=== PATIENT | female | born 1990 | race Caucasian/White ===

== ENCOUNTER 2016-10-27 08:03 | Emergency (ER) | payer SELFPAY ==
[2016-10-27 08:22] VITALS: BP 118/76
--- NOTE | 2016-10-27 08:43 | ER Document Report ---
HPI - HPI Patient complains to provider of: Pruritic rash Onset: Other - Several days Onset/Duration: Gradual Pain Level: 2 Context: 26-year-old female complaining of rash medial aspect of bilateral upper thighs, anterior left thigh and now left chest. No fever. No exposure to poison dahiana or change in detergents anything that she can think of that would cause a rash. Associated Symptoms: None Exacerbated by: Denies Relieved by: Denies Similar symptoms previously: No Recently seen / treated by doctor: No - ROS ROS below otherwise negative: Yes Systems Reviewed and Negative: Yes All other systems reviewed and negative - REPRODUCTIVE LMP: 10/26/16 Reproductive: DENIES: : - DERM Skin Color: Erythema Past Medical History - General Information source: Patient - Social History Smoking Status: Never Smoker Frequency of alcohol use: None Drug Abuse: None Lives with: Family Family History: Reviewed & Not Pertinent Patient has suicidal ideation: No Patient has homicidal ideation: No Pulmonary Medical History: Reports: Hx Asthma Renal/ Medical History: Denies: Hx Peritoneal Dialysis Surgical Hx: Negative - Immunizations Hx Diphtheria, Pertussis, Tetanus Vaccination: Yes Vertical Provider Document - CONSTITUTIONAL Agree With Documented VS: Yes Exam Limitations: No Limitations General Appearance: No Apparent Distress - INFECTION CONTROL TRAVEL OUTSIDE OF THE [place] IN LAST 30 DAYS: No - HEENT HEENT: Normal ENT Exam - NECK Neck: Supple - RESPIRATORY Respiratory: Breath Sounds Normal, No Respiratory Distress O2 Sat by Pulse Oximetry: 98 - CARDIOVASCULAR Cardiovascular: Regular Rate, Regular Rhythm - MUSCULOSKELETAL/EXTREMETIES Musculoskeletal/Extremeties: MAEW, FROM, Non-Tender - NEURO Level of Consciousness: Awake, Alert - DERM Integumentary: Rash - Mild folliculitis in kissing areas of the medial inner obese thighs without infection, 3 areas left anterior thigh that have linear excoriations from scratching possible inflammation or impetigo at the sites similar appearing crusted area right upper chest that she scratched. Course - Vital Signs Vital signs: Temp Pulse Resp BP Pulse Ox 97.9 F 74 18 118/76 98 10/27/16 08:19 10/27/16 08:19 10/27/16 08:19 10/27/16 08:19 10/27/16 08:19 Discharge - Discharge Clinical Impression: possible scabies, Impetigo Condition: Good Disposition: HOME, SELF-CARE Instructions: Anti-Mite Skin Creams, Bactroban Ointment (OM), Car Worker, Use of Diphenhydramine, Impetigo (OM) Additional Instructions: use the elimite cream from toes to neck, wash off in 12 hours bactroban ointment as antibiotic, small amount three times per day to the inflamed areas on left thigh, and right chest to er if worse see ecological economist if persists Prescriptions: Mupirocin [Bactroban 2% Ointment 22 gm] 1 applic TP TID #1 tube Permethrin [Elimite] 60 gm TP ONCE PRN #1 cream.gm. PRN Reason: Forms: Return to Work
[2016-10-27] MEDS ORDERED: PERMETHRIN 5% CREAM 60 GM TP PRN (08:52)
== END 2016-10-27 09:02 | disposition home or self-care (01) ==
LOC: ER 08:03
DX: L01.00 Impetigo, unspecified (principal); L73.9 Follicular disorder, unspecified; J45.909 Unspecified asthma, uncomplicated
CPT/HCPCS: 99282; J3490

== ENCOUNTER 2017-08-14 21:26 | Emergency (ER) | payer SELFPAY ==
[2017-08-14 22:49] LABS: ABSOLUTE BASOPHILS # (AUTO) 0.1 10^3/uL (0.0-0.2); ABSOLUTE EOSINOPHILS # (AUTO) 0.6 10^3/uL (0.0-0.6); ABSOLUTE LYMPHOCYTES (AUTO) 3.4 10^3/uL (0.5-4.7); ABSOLUTE MONOCYTES (AUTO) 0.9 10^3/uL (0.1-1.4); ABSOLUTE NEUT (AUTO) 6.8 10^3/uL (1.7-8.2); BASOPHILS % (AUTO) 0.8 % (0-2); EOSINOPHILS % (AUTO) 5.4 % (0-6); HEMATOCRIT 45.6 % (36.0-47.0); HEMOGLOBIN 15.6 g/dL (12.0-15.5); LYMPHOCYTES % (AUTO) 28.8 % (13-45); MEAN CORPUSCULAR HEMOGLOBIN 30.5 pg (27.0-33.4); MEAN CORPUSCULAR HGB CONC 34.2 g/dL (32.0-36.0); MEAN CORPUSCULAR VOLUME 89 fl (80-97); MONOCYTES % (AUTO) 7.9 % (3-13); PLATELET COUNT 341 10^3/uL (150-450); RED BLOOD COUNT 5.11 10^6/uL (3.72-5.28); RED CELL DISTRIBUTION WIDTH 13.2 % (11.5-14.0); SEGMENTED NEUTROPHILS % (AUTO) 57.1 % (42-78); TOTAL CELLS COUNTED % (AUTO) 100 %; WHITE BLOOD COUNT 11.9 10^3/uL (4.0-10.5)
[2017-08-14 22:54] LABS: APPEARANCE,URINE SLIGHTLY-CLOUDY; BILIRUBIN,URINE NEGATIVE (NEGATIVE); COLOR,URINE YELLOW; GLUCOSE, URINE NEGATIVE (NEGATIVE); KETONES,URINE NEGATIVE (NEGATIVE); LEUKOCYTE ESTERASE,URINE SMALL (NEGATIVE); NITRITE,URINE NEGATIVE (NEGATIVE); PROTEIN,URINE NEGATIVE (NEGATIVE); URINE SPECIFIC GRAVITY 1.025; UROBILINOGEN,URINE NEGATIVE mg/dL (<2.0)
[2017-08-14 23:10] LABS: ALANINE AMINOTRANSFERASE 20 U/L (9-52); ALBUMIN 4.1 g/dL (3.5-5.0); ALKALINE PHOSPHATASE 83 U/L (38-126); ANION GAP 12 (5-19); ASPARTATE AMINO TRANSFERASE 16 U/L (14-36); BILIRUBIN,DIRECT 0.2 mg/dL (0.0-0.4); BILIRUBIN,TOTAL 0.3 mg/dL (0.2-1.3); BLOOD UREA NITROGEN 14 mg/dL (7-20); CALCIUM 9.6 mg/dL (8.4-10.2); CARBON DIOXIDE 23 mmol/L (22-30); CHLORIDE 109 mmol/L (98-107); GLUCOSE 106 mg/dL (75-110); POTASSIUM 4.3 mmol/L (3.6-5.0); SODIUM 144.2 mmol/L (137-145); TOTAL PROTEIN 7.5 g/dL (6.3-8.2)
[2017-08-14 23:12] LABS: URINE AMPHETAMINES SCREEN NEGATIVE; URINE BARBITURATES SCREEN NEGATIVE; URINE BENZODIAZEPINES SCREEN NEGATIVE; URINE COCAINE SCREEN NEGATIVE; URINE MARIJUANA (THC) SCREEN NEGATIVE; URINE METHADONE SCREEN NEGATIVE; URINE PHENCYCLIDINE SCREEN NEGATIVE
[2017-08-14 23:15] LABS: ACETAMINOPHEN < 10 ug/mL (10-30); ALCOHOL < 10 mg/dL (NONE DETECTED); SALICYLATE < 1.0 mg/dL (2.0-20.0)
--- NOTE | 2017-08-14 23:42 | ER Document Report ---
ED General - General Mode of Arrival: Ambulatory Information source: Patient TRAVEL OUTSIDE OF THE [place]. IN LAST 30 DAYS: No <PAL PINTO - Last Filed: 08/15/17 00:11> <REGULO MARKHAM - Last Filed: 08/15/17 02:48> - General Chief Complaint: Psych Problem Stated Complaint: SUICIDAL IDEATION Time Seen by Provider: 08/14/17 21:50 Notes: 26 y.o female with a PMHx of asthma and depression presents to the ED with SI. She reports that for the past week she has been having SI which she has had in the past as well but has never been institutionalized or seen a counselor. Pt reports that she used to take Prozac but stopped taking it about a year ago because she does not have health insurance anymore. She states that she locked herself in her room all day today to avoid hurting herself. She reports a plan of cutting her arms. Pt denies any other medical issues. (PAL PINOT) - Related Data Allergies/Adverse Reactions: mustard [Mustard] Allergy (Verified 10/27/16 08:15) Penicillins Allergy (Verified 10/27/16 08:15) Past Medical History - General Information source: Patient, Parent - Social History Smoking Status: Never Smoker Cigarette use (# per day): No Chew tobacco use (# tins/day): No Smoking Education Provided: No Frequency of alcohol use: Occasional Drug Abuse: None Family History: Reviewed & Not Pertinent Pulmonary Medical History: Reports: Hx Asthma Renal/ Medical History: Denies: Hx Peritoneal Dialysis Psychiatric Medical History: Reports: Hx Depression - Immunizations Hx Diphtheria, Pertussis, Tetanus Vaccination: Yes <PAL PINTO - Last Filed: 08/15/17 00:11> Review of Systems - Review of Systems Constitutional: No symptoms reported EENT: No symptoms reported Cardiovascular: No symptoms reported Respiratory: No symptoms reported Gastrointestinal: No symptoms reported Genitourinary: No symptoms reported Female Genitourinary: No symptoms reported Musculoskeletal: No symptoms reported Skin: No symptoms reported Hematologic/Lymphatic: No symptoms reported Neurological/Psychological: See HPI, Suicidal ideation -: Yes All other systems reviewed and negative <PAL PINTO - Last Filed: 08/15/17 00:11> Physical Exam <PAL PINTO - Last Filed: 08/15/17 00:11> <REGULO MARKHAM - Last Filed: 08/15/17 02:48> - Vital signs Vitals: Temp Pulse Resp BP Pulse Ox 99.0 F 93 20 123/70 96 08/14/17 22:07 08/14/17 22:07 08/14/17 22:07 08/14/17 22:07 08/14/17 22:07 - Notes Notes: Physical Exam: General: Alert. HEENT: Normocephalic. Atraumatic. PERRL. Extraocular movements intact. Oropharynx clear. Neck: Supple. Non-tender. Respiratory: No respiratory distress. Clear and equal breath sounds bilaterally. Cardiovascular: Regular rate and rhythm. Abdominal: Normal Inspection. Non-tender. No distension. Normal Bowel Sounds. Back: Non-tender. No deformity or step off. Extremities: Moves all four extremities. Upper extremities: Normal inspection. Normal ROM. Lower extremities: Normal inspection. No edema. Normal ROM. Neurological: Normal cognition. AAOx3. Normal speech. Psychological: Flat affect. Skin: Warm. Dry. Normal color. (PAL PINTO) Course - Laboratory Result Diagrams: 08/14/17 22:35 08/14/17 22:35 <PAL PINTO - Last Filed: 08/15/17 00:11> - Laboratory Result Diagrams: 08/14/17 22:35 08/14/17 22:35 <REGULO MARKHAM - Last Filed: 08/15/17 02:48> - Re-evaluation Re-evalutation: 08/15/17 Patient is a 26-year-old female with a history of depression, who comes in complaining of suicidal ideation with plan to take a knife and cut her arm. Patient has a history of depression and was taking Prozac up until a year ago when she lost her insurance. She has been seen at and see before. She would have like to return up with the needed money upfront from her which the patient does not have. Patient is medically stable with no acute findings on blood work. She has been placed on involuntary commitment paper work due to her suicidal ideation with plan. She will be evaluated by mental health in the morning. Social work consult has also been placed. Stable at this time. (REGULO MARKHAM) - Vital Signs Vital signs: Temp Pulse Resp BP Pulse Ox 99.0 F 93 20 123/70 96 08/14/17 22:07 08/14/17 22:07 08/14/17 22:07 08/14/17 22:07 08/14/17 22:07 - Laboratory Laboratory results interpreted by me: 08/14/17 08/14/17 08/14/17 22:35 22:35 22:35 WBC 11.9 H Hgb 15.6 H Chloride 109 H Urine Blood SMALL H Ur Leukocyte Esterase SMALL H Salicylates < 1.0 L Acetaminophen < 10 L Discharge <PAL PINTO - Last Filed: 08/15/17 00:11> <REGULO MARKHAM - Last Filed: 08/15/17 02:48> - Discharge Clinical Impression: Suicidal ideation Depression Qualifiers: Depression Type: unspecified Qualified Code(s): F32.9 - Major depressive disorder, single episode, unspecified Condition: Stable Disposition: OTHER Scribe Attestation: 08/15/17 02:48 I personally performed the services described in the documentation, reviewed and edited the documentation which was dictated to the scribe in my presence, and it accurately records my words and actions. (REGULO MARKHAM) Scribe Documentation - Scribe Written by Scribe:: Sabiha Cortes 08/15/17 [id number] acting as scribe for :: Edith <PAL PINTO - Last Filed: 08/15/17 00:11>
--- NOTE | 2017-08-15 07:07 | EKG REPORT ---
SEVERITY:- NORMAL ECG - SINUS RHYTHM : Confirmed by: Milad Angulo MD 15-Aug-2017 07:06:38
[2017-08-15] MEDS ORDERED: CITALOPRAM HYDROBROMIDE 20 MG TABLET PO ONE (12:49)
[2017-08-15 14:30] VITALS: BP 142/70
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
== END 2017-08-15 16:32 | disposition home or self-care (01) ==
LOC: ER 21:26
DX: F32.9 Major depressive disorder, single episode, unspecified (principal); R45.851 Suicidal ideations; F41.9 Anxiety disorder, unspecified; Z88.0 Allergy status to penicillin; Z65.9 Problem related to unspecified psychosocial circumstances
CPT/HCPCS: 36415; 80053; 80307; 81001; 84703; 85025; 93005; 93010; 99285

== ENCOUNTER 2018-03-29 15:01 | Emergency (ER) | payer SELFPAY ==
--- NOTE | 2018-03-29 18:14 | ER Document Report ---
HPI - HPI Patient complains to provider of: chest pains Time Seen by Provider: 03/29/18 18:03 Pain Level: 3 Context: The emergency she had a upper respiratory infection, cough, congestion, subjective fever. Since then she has felt an intermittent pinching feeling in the center of her chest. States she also then has an episode of posttussive vomiting. Patient states she continues with a cough and congestion but no longer has any fevers from her URI illness last week. Patient states chest pain does increase when she takes a deep breath and when she touches the center of her chest. Patient states she does not have insurance but does go to a mental health facility for routine counseling. Patient denies any cardiac history for herself, her immediate family. past medical history: Anxiety, asthma Medications: None Allergies: Penicillin - REPRODUCTIVE Reproductive: DENIES: : Past Medical History - General Information source: Patient - Social History Smoking Status: Unknown if Ever Smoked Family History: Reviewed & Not Pertinent Patient has suicidal ideation: No Patient has homicidal ideation: No Pulmonary Medical History: Reports: Hx Asthma Renal/ Medical History: Denies: Hx Peritoneal Dialysis Psychiatric Medical History: Reports: Hx Depression - Immunizations Hx Diphtheria, Pertussis, Tetanus Vaccination: Yes Vertical Provider Document - CONSTITUTIONAL Agree With Documented VS: Yes Notes: GENERAL: Alert, interacts well. No acute distress. HEAD: Normocephalic, atraumatic. EYES: Pupils equal, round, and reactive to light. Extraocular movements intact. ENT: Oral mucosa moist, tongue midline. NECK: Full range of motion. Supple. Trachea midline. LUNGS: Clear to auscultation bilaterally, no wheezes, rales, or rhonchi. No respiratory distress. HEART: Regular rate and rhythm. No murmur CHEST: Anterior posterior chest wall, no erythema or ecchymosis noted. ABDOMEN: Soft, non-tender. Non-distended. Bowel sounds present in all 4 quadrants. EXTREMITIES: Moves all 4 extremities spontaneously. No edema, normal radial and dorsalis pedis pulses bilaterally. No cyanosis. BACK: no cervical, thoracic, lumbar midline tenderness. No saddle anesthesia, normal distal neurovascular exam. NEUROLOGICAL: Alert and oriented x3. Normal speech. cranial nerves II through XII grossly intact PSYCH: Normal affect, normal mood. SKIN: Warm, dry, normal turgor. No rashes or lesions noted. - INFECTION CONTROL TRAVEL OUTSIDE OF THE [place] IN LAST 30 DAYS: No Course - Re-evaluation Re-evalutation: 03/29/18 20:05 Patient's chest x-ray shows no signs of pneumothorax, pneumonia, cardiomegaly, rib fractures. Patient's EKG shows a sinus rhythm at a rate of 78, QTC 424, no ST segment elevations or depressions noted. Because patient's chest pain is following a URI type illness, increases upon palpation, deep inspiration, cough I am suspecting this is muscular skeletal in nature. Discussed close follow-up at [facility]. Patient voices understanding and states that Motrin has helped her pain. Patient stable for discharge. - Vital Signs Vital signs: Temp Pulse Resp BP Pulse Ox 98.3 F 71 18 117/68 98 03/29/18 15:34 03/29/18 15:34 03/29/18 15:34 03/29/18 15:34 03/29/18 15:34 Discharge - Discharge Clinical Impression: Chest pain Qualifiers: Chest pain type: chest pain on breathing Qualified Code(s): R07.1 - Chest pain on breathing; R07.81 - Pleurodynia Condition: Stable Disposition: HOME, SELF-CARE Instructions: Chest Wall Pain ([facility]) Additional Instructions: As we discussed your x-ray and EKG were normal. At this time I do believe your chest pain is muscular in nature. Please continue to take [id number] Tylenol and Motrin for your generalized pain. Please follow up at [facility], phone numbers will be provided in this packet. Please return to the emergency room should you have any other signs and symptoms Referrals: [facility] [Provider Group] - Follow up as needed
[2018-03-29] MEDS ORDERED: IBUPROFEN 800 MG TABLET PO ONE (18:23)
--- NOTE | 2018-03-29 18:43 | RADIOLOGY REPORT (SQ) ---
EXAM DESCRIPTION: CHEST 2 VIEWS COMPLETED DATE/TIME: 03/29/2018 6:30 pm REASON FOR STUDY: pain COMPARISON: 04/08/2014 EXAM PARAMETERS: NUMBER OF VIEWS: two views TECHNIQUE: Digital Frontal and Lateral radiographic views of the chest acquired. RADIATION DOSE: NA LIMITATIONS: none FINDINGS: LUNGS AND PLEURA: No opacities, masses or pneumothorax. No pleural effusion. MEDIASTINUM AND HILAR STRUCTURES: No masses or contour abnormalities. HEART AND VASCULAR STRUCTURES: Heart normal size. No evidence for failure. BONES: No acute findings. HARDWARE: None in the chest. OTHER: No other significant finding. IMPRESSION: NO ACUTE RADIOGRAPHIC FINDING IN THE CHEST. TECHNICAL DOCUMENTATION: JOB ID: [id number] [employer]- All Rights Reserved Reading location - IP/workstation name: [email or web address]
[2018-03-29 20:20] VITALS: BP 120/77
--- NOTE | 2018-03-29 22:55 | EKG REPORT ---
SEVERITY:- NORMAL ECG - SINUS RHYTHM : Confirmed by: Rissa Matos MD 29-Mar-2018 22:55:17
== END 2018-03-29 20:12 | disposition home or self-care (01) ==
LOC: ER 15:01
DX: R07.1 Chest pain on breathing (principal); R07.81 Pleurodynia; R05 Cough; R50.9 Fever, unspecified; Z88.0 Allergy status to penicillin
CPT/HCPCS: 71046; 93005; 93010; 99283

== ENCOUNTER 2018-04-25 05:36 | Emergency (ER) | payer SELFPAY ==
--- NOTE | 2018-04-25 07:16 | ER Document Report ---
ED General - General Chief Complaint: Chest Pain Stated Complaint: CHEST PAIN Time Seen by Provider: 04/25/18 07:04 Notes: Patient is a 27-year-old female who presents to the emergency department with a chief complaint of chest pain and a cough for the past 2 weeks. She states that she has a history of asthma. She states that her chest pain is in the middle of her chest and it happens every time she coughs. She was seen here in the emerg ency department at the end of March and at that time was sent home. She also states that she does have a hard time taking in good deep breaths. She denies any fever, nausea, diarrhea, abdominal pain, or flank pain. TRAVEL OUTSIDE OF THE [place] IN LAST 30 DAYS: No - Related Data Allergies/Adverse Reactions: mustard [Mustard] Allergy (Verified 03/29/18 15:04) Penicillins Allergy (Verified 03/29/18 15:04) Past Medical History - Social History Smoking Status: Never Smoker Chew tobacco use (# tins/day): No Frequency of alcohol use: None Drug Abuse: None Family History: Reviewed & Not Pertinent Patient has suicidal ideation: No Patient has homicidal ideation: No Pulmonary Medical History: Reports: Hx Asthma Renal/ Medical History: Denies: Hx Peritoneal Dialysis Psychiatric Medical History: Reports: Hx Depression - and anxiety - Immunizations Hx Diphtheria, Pertussis, Tetanus Vaccination: Yes Review of Systems - Review of Systems Notes: REVIEW OF SYSTEMS: CONSTITUTIONAL : Denies recent illness. Denies recent unintentional weight loss. Denies fever, chills, or sweats. EENT: Denies eye, ear, throat, or mouth pain, discharge, or symptoms. Denies nasal or sinus congestion. CARDIOVASCULAR: See HPI RESPIRATORY: See HPI GASTROINTESTINAL: Denies nausea, vomiting, and diarrhea. Denies abdominal pain. Denies constipation. GENITOURINARY: Denies difficulty urinating, burning, blood in urine, urgency or frequency. MUSCULOSKELETAL: Denies neck and back pain. Denies joint pain or swelling. SKIN: Denies rash, itchiness, or lesions HEMATOLOGIC : Denies easy bruising or bleeding. LYMPHATIC: Denies swollen, painful, enlarged glands. NEUROLOGICAL: Denies no numbness or tingling denies weakness. Denies headache. Denies altered mental status. Denies alteration in speech. PSYCHIATRIC: Denies stress, anxiety, alteration in sleep patterns, or depression. All other systems reviewed and negative. Physical Exam - Vital signs Vitals: Temp Pulse Resp BP Pulse Ox 98.1 F 90 22 H 147/92 H 97 04/25/18 05:49 04/25/18 05:49 04/25/18 05:49 04/25/18 05:49 04/25/18 05:49 - Notes Notes: PHYSICAL EXAMINATION: GENERAL: Appears well, healthy, well-nourished, no acute distress. HEAD: Normocephalic, atraumatic. EYES: PERRL, conjunctiva normal, all extraocular movements intact, sclera nonicteric ENT: Moist mucous membranes. NECK: Supple, no noticeable swelling, redness, rash. Normal range of motion. LUNGS: Equal breath sounds bilaterally and clear to auscultation. No wheezes rales or rhonchi. CARDIOVASCULAR: S1-S2, regular rate, regular rhythm. Radial pulses 2+, normal. ABDOMEN: Normoactive bowel sounds. Soft, nontender, no guarding, no rebound tenderness, and no masses palpated. EXTREMITIES: Normal strength and range of motion, no pitting or edema. No cyanosis. NEUROLOGICAL: Moves all extremities upon command. Strength 5/5 in all extremities. PSYCH: Normal mood, normal affect. SKIN: Warm, dry. No rash, lesions, ulcerations noted. Normal skin turgor. Course - Re-evaluation Re-evalutation: Differential diagnosis includes pneumonia, bronchitis, upper respiratory viral i nfection. I do not suspect the patient has an acute ME, acute pulmonary emboli, or any other life-threatening etiology based off patient's symptoms and the fact that she has had a cough for a long period of time. 04/25/18 07:18 The patient will be given Tessalon Perles for her symptoms and a chest x-ray will be done. 04/25/18 08:29 The patient's chest x-ray is negative for pneumonia. She will be given an albuterol inhaler and Tessalon Perles to help with her symptoms. She does not look septic in appearance. She actually looks rather well for having a cough. Verbal discharge instructions were given to the patient. They verbalized understanding. They are stable for discharge. - Vital Signs Vital signs: Temp Pulse Resp BP Pulse Ox 97.7 F 70 16 153/81 H 97 04/25/18 09:08 04/25/18 09:08 04/25/18 09:08 04/25/18 09:08 04/25/18 09:08 - EKG Interpretation by Me Additional EKG results interpreted by me: 04/25/18 07:19 Sinus rhythm. Heart rate 81. TN 136; QRS 88; QT 368; QTC 428. No ST elevations or depressions. No change from previous EKG. Discharge - Discharge Clinical Impression: Cough Condition: Stable Disposition: HOME, SELF-CARE Additional Instructions: You were seen today in the emergency department for a cough. Your symptoms are most consistent with bronchitis. You have been given an albuterol inhaler, to help with your difficulty breathing. You have also been given Tessalon Perles, medication to help with your cough. Please take as directed. If you have worsening symptoms, or unable to breathe, or have symptoms that are worrisome to you, please return to the emergency department. Prescriptions: Benzonatate [Tessalon Perles 100 mg Capsule] 100 mg PO Q8HP PRN #40 capsule PRN Reason: Forms: Return to Work
[2018-04-25] MEDS ORDERED: BENZONATATE 100 MG CAPSULE PO ONE (07:17)
--- NOTE | 2018-04-25 07:37 | EKG REPORT ---
SEVERITY:- NORMAL ECG - SINUS RHYTHM : Confirmed by: Milad Angulo MD 25-Apr-2018 07:36:13
--- NOTE | 2018-04-25 08:27 | RADIOLOGY REPORT (SQ) ---
EXAM DESCRIPTION: CHEST 2 VIEWS COMPLETED DATE/TIME: 04/25/2018 7:43 am REASON FOR STUDY: cough x2 weeks COMPARISON: Two-view chest 03/29/2018, 04/08/2014 EXAM PARAMETERS: NUMBER OF VIEWS: two views TECHNIQUE: Digital Frontal and Lateral radiographic views of the chest acquired. RADIATION DOSE: NA LIMITATIONS: none FINDINGS: LUNGS AND PLEURA: No opacities, masses or pneumothorax. No pleural effusion. MEDIASTINUM AND HILAR STRUCTURES: No masses or contour abnormalities. HEART AND VASCULAR STRUCTURES: Heart normal size. No evidence for failure. BONES: No acute findings. HARDWARE: None in the chest. OTHER: No other significant finding. IMPRESSION: NO ACUTE RADIOGRAPHIC FINDING IN THE CHEST. TECHNICAL DOCUMENTATION: JOB ID: [id number] [employer]- All Rights Reserved Reading location - IP/workstation name: [email or web address]
[2018-04-25] MEDS ORDERED: ALBUTEROL SULFATE HFA (90 MCG/PUFF) 8 GM MDI (1 MDI/ER DISP) IH PRN (08:32)
[2018-04-25 09:21] VITALS: BP 153/81
== END 2018-04-25 09:34 | disposition home or self-care (01) ==
LOC: ER 05:36
DX: R05 Cough (principal); R07.9 Chest pain, unspecified; J45.909 Unspecified asthma, uncomplicated
CPT/HCPCS: 93005; 99283; 71046; 93010; J3490

== ENCOUNTER 2018-05-30 17:59 | Emergency (ER) | payer SELFPAY ==
[2018-05-30] MEDS ORDERED: ONDANSETRON 4 MG TAB.RAPDIS PO ONE (19:59)
[2018-05-30] MEDS ORDERED: PROMETHAZINE HCL INJ 25 MG/1 ML VIAL IM ONE (20:54)
--- NOTE | 2018-05-30 20:58 | ER Document Report ---
HPI - HPI Time Seen by Provider: 05/30/18 19:23 Pain Level: 5 Notes: Patient is an otherwise healthy 27-year-old female who presents to the emergency department with chief complaint of cough, congestion and diarrhea for 3 days. Patient reports she has vomited a few times as well. Patient reports she took Zofran at home which helped her symptoms. She denies any abdominal pain, denies any back pain or dysuria. Patient denies any abnormal vaginal discharge. - EENT EENT: REPORTS: Sore Throat - RESPIRATORY Respiratory: REPORTS: Coughing - GASTROINTESTINAL Gastrointestinal: DENIES: Black / Bloody Stools - REPRODUCTIVE Reproductive: DENIES: : Past Medical History - General Information source: Patient - Social History Smoking Status: Never Smoker Family History: Reviewed & Not Pertinent Patient has suicidal ideation: No Patient has homicidal ideation: No Pulmonary Medical History: Reports: Hx Asthma Renal/ Medical History: Denies: Hx Peritoneal Dialysis Psychiatric Medical History: Reports: Hx Depression - and anxiety - Immunizations Hx Diphtheria, Pertussis, Tetanus Vaccination: Yes Vertical Provider Document - CONSTITUTIONAL Notes: PHYSICAL EXAMINATION: GENERAL: Well-appearing, well-nourished and in no acute distress. HEAD: Atraumatic, normocephalic. EYES: Pupils equal round extraocular movements intact, conjunctiva are normal. ENT: Nares patent, throat mildly erythematous but without tonsillar swelling or exudates. No evidence of peritonsillar abscess. NECK: Normal range of motion, mild cervical lymphadenopathy. LUNGS: No respiratory distress, lung sounds clear to auscultation bilaterally. Musculoskeletal: Normal range of motion NEUROLOGICAL: Normal speech, normal gait. PSYCH: Normal mood, normal affect. SKIN: Warm, Dry, normal turgor, no rashes or lesions noted. - INFECTION CONTROL TRAVEL OUTSIDE OF THE [place] IN LAST 30 DAYS: No Course - Re-evaluation Re-evalutation: Rapid strep is negative. Patient able to tolerate p.o. after administration of antiemetics. Physical examination is unremarkable, abdomen is soft, nontender. Throat mildly erythematous but without tonsillar swelling or exudates, no evidence of peritonsillar abscess. Likely viral upper respiratory illness. Patient stable for discharge home. - Vital Signs Vital signs: Temp Pulse Resp BP Pulse Ox 97.9 F 103 H 18 137/76 H 96 05/30/18 18:04 05/30/18 18:04 05/30/18 18:04 05/30/18 18:04 05/30/18 18:04 Discharge - Discharge Clinical Impression: Sore throat, Viral upper respiratory illness Condition: Stable Disposition: HOME, SELF-CARE Additional Instructions: Upper Respiratory Illness You have a viral infection of the respiratory passages -- a "cold." This common infection causes nasal congestion, drainage, and often sore throat and cough. It is caused by a virus and is highly contagious. The disease usually lasts a week or more, though the worst symptoms are usually over in 3 or 4 days. There is no "cure" for the viral infection -- it must run its course. If there is a complication, such as bacterial infection in the nose, sinuses, middle ear, or bronchial tubes, antibiotics may be required, but antibiotics won't affect the virus. If you smoke, you should STOP!! Drink plenty of fluids. A humidifier may help. An expectorant medication or decongestant may make you more comfortable. Use acetaminophen or ibuprofen for fever or aches. See the doctor if fever persists over two or three days, if there is any significant worsening of your symptoms, or if you simply fail to improve as expected. SORE THROAT: Sore throats may be caused by viruses, bacteria, or fungi. Most are due to a virus, and must get better on their own. Bacterial sore throats, particularly those due to "strep," need treatment with antibiotics. If an antibiotic is prescribed, be sure to take the medication for a full 10 days. Failure to take the antibiotic can result in complications such as rheumatic fever. Sometimes, an injection of antibiotics is given instead of pills or liquid. This single "shot" is equal in effectiveness to the oral medication. To relieve symptoms, take acetaminophen for pain. Sip clear liquids frequently, or eat popsicles or ice chips. Anesthetic sprays or lozenges may help. Make sure the air in the room is not too dry. Avoid using decongestants or antihistamines. Call the doctor if there is no improvement in two days, or if you have difficulty breathing, increasing throat pain, high fever, rash, or frequent vomiting. FOLLOW-UP CARE: If you have been referred to a physician for follow-up care, call the [facility] office for an appointment as you were instructed or within the next two days. If you experience worsening or a significant change in your symptoms, notify the physician immediately or return to the Emergency Department at any time for re-evaluation. The rapid strep test today was negative. Please take Zofran if needed for nausea. Drink plenty of fluids. Throat culture is pending, someone will call you in the next 48-72 hours if there is any abnormality. Prescriptions: Ondansetron [Zofran Odt 4 mg Tablet] 1 - 2 tab PO Q4H PRN #15 tab.rapdis PRN Reason: For Nausea/Vomiting Promethazine HCl [Phenergan 25 mg Tablet] 1 - 2 tab PO Q6H PRN #15 tablet PRN Reason: Forms: Return to Work
[2018-05-30] MEDS ORDERED: ONDANSETRON ODT 4 MG TAB (6 TAB/ER DISP) PO PRN (21:02)
[2018-05-30 21:28] VITALS: BP 148/97
== END 2018-05-30 21:32 | disposition home or self-care (01) ==
LOC: ER 17:59
DX: J06.9 Acute upper respiratory infection, unspecified (principal); B97.89 Other viral agents as the cause of diseases classified elsewhere; J02.9 Acute pharyngitis, unspecified; R05 Cough; R09.81 Nasal congestion; R19.7 Diarrhea, unspecified; R11.10 Vomiting, unspecified; J45.909 Unspecified asthma, uncomplicated
CPT/HCPCS: 99283; 96372; 87070; 87880; 87077; S0119; J2550

== ENCOUNTER 2019-01-09 19:16 | Emergency (ER) | payer SELFPAY ==
[2019-01-09 19:24] VITALS: BP 150/92
--- NOTE | 2019-01-09 19:31 | ER Document Report ---
HPI - HPI Time Seen by Provider: 01/09/19 19:31 Notes: 28-year-old female presents to the emergency room for evaluation of tooth pain that has been occurring for the last 3 weeks. Patient states that her tooth had been "rotting out for months" and patient manually took out her own tooth. Pain is 7 out of 10, throbbing achy. Patient is currently on her menstrual cycle. Patient states she has not been unable to get into a dentist due to lack of dental insurance and when she is, formerly [facility], she is unable to get an appointment. Patient states she is not a smoker. - REPRODUCTIVE Reproductive: DENIES: : Past Medical History - Social History Smoking Status: Former Smoker Family History: Reviewed & Not Pertinent Pulmonary Medical History: Reports: Hx Asthma Renal/ Medical History: Denies: Hx Peritoneal Dialysis Psychiatric Medical History: Reports: Hx Depression - and anxiety - Immunizations Hx Diphtheria, Pertussis, Tetanus Vaccination: Yes Vertical Provider Document - INFECTION CONTROL TRAVEL OUTSIDE OF THE [place] IN LAST 30 DAYS: No Course - Re-evaluation Re-evalutation: 01/09/19 19:52 Airway is patent. Vitals within normal limits. Patient is able swallow without any difficulty. There is no significant facial swelling. No evidence of Ray angina, apical abscess, or airway obstruction. Patient will be started on antibiotics. I've instructed to follow-up with dentistry as earliest ability for definitive management. At this time will discharge with return precautions and follow-up recommendations. Verbal discharge instructions given a the bedside and opportunity for questions given. Medication warnings reviewed. Patient is in agreement with this plan and has verbalized understanding of return precautions and the need for primary care follow-up in the next 24-72 hours. - Vital Signs Vital signs: Temp Pulse Resp BP Pulse Ox 98.4 F 87 16 150/92 H 96 01/09/19 19:25 01/09/19 19:25 01/09/19 19:25 01/09/19 19:25 01/09/19 19:25 Discharge - Discharge Clinical Impression: Dental caries, Tooth missing Condition: Stable Disposition: HOME, SELF-CARE Instructions: Toothache ([facility]), [facility], Clindamycin ([facility]), Dentist Additional Instructions: Return immediately for any new or worsening symptoms. Follow up with primary care provider, call tomorrow to make followup appointment. Prescriptions: Clindamycin HCl 300 mg PO Q6H #28 capsule Meloxicam [Mobic] 7.5 mg PO DAILY #7 tablet Forms: Return to Work Referrals: MANJIT PETERSEN MD [ACTIVE STAFF] - Follow up as needed
[2019-01-09] MEDS ORDERED: KETOROLAC TROMETHAMINE 60 MG/2 ML SDV IM ONE (19:49)
== END 2019-01-09 20:26 | disposition home or self-care (01) ==
LOC: ER 19:16
DX: K02.9 Dental caries, unspecified (principal); K08.409 Partial loss of teeth, unspecified cause, unspecified class; K08.89 Other specified disorders of teeth and supporting structures; J45.909 Unspecified asthma, uncomplicated; Z87.891 Personal history of nicotine dependence
CPT/HCPCS: 96374; 99282; J1885